=== PATIENT | male | born 1995 | race Caucasian/White ===

== ENCOUNTER 2017-06-30 23:48 | Emergency (ER) | payer SELFPAY ==
[~2017-06-30] VITALS: Ht 180.3 cm; Wt 63.5 kg
[~2017-06-30 23:48] MED LIST: AMOCLA250S PO; AMOCLA500 PO; ARIP10 PO; BENZ100A PO; CEFP250; CEPH500 PO; CODACE30 PO; CODACEE120 PO; DIPH12.5EL; DIPH25; DIPH25 PO; ERYT.5TO LEFTEYE; FAMO20 PO; FLUO20 PO; HYDACE5 PO; IBUP200 PO; METPHE18ER; METPHE18ER PO; METPHE27ER; METPHE27ER PO; Naprosyn500 MG PO; Norco 5-325 Ta1 EACH PO; ONDA8 PO; ONDA8ODT MM; PANT40 PO; POLY17UD; PRED10 PO; PRED20 PO; Pepcid20 MG PO; Pepcid40 MG PO; Percocet 5-3251 EACH PO; Prednisone20 MG PO; Prilosec Otc20 MG PO; RXHYDGUAS PO; RXPRED10 PO; SUCR1 PO; SULF10OPO OP; SULTRIDS PO; Ultram50 MG PO; Vibramycin100 MG PO; Zofran Odt4 MG SL; Zofran8 MG PO; [UNRECOGNIZED DRUG - OTHER]
[2017-07-01] MEDS ORDERED: METPHE18ER PO (00:11)
[2017-07-01] MEDS ORDERED: ARIP10 PO (00:11)
[2017-07-01 00:50] LABS: Chloride (POC) 103 mmol/L (98-108); Glucose (ISTAT POC) 87 mg/dL (70-99); Hemoglobin (POC) 14.6 g/dL (13.5-17.5); Potassium (POC) 3.9 mmol/L (3.5-5.5); Sodium (POC) 142 mmol/L (135-148); Total CO2 (POC) 31 mmol/L (21-32)
[2017-07-01 00:55] LABS: Influenza A Negative (NEGATIVE); Influenza B Negative (NEGATIVE)
[2017-07-01] MEDS ORDERED: Zofran Odt4 MG SL (01:43)
[2017-07-01] MEDS ORDERED: BENZ100A PO (01:43)
[2017-07-01] MEDS ORDERED: Mucinex600 MG PO (01:43)
[2018-04-05] MEDS ORDERED: PRED20 PO (13:08)
== END 2017-07-01 02:00 | disposition home or self-care (01) ==
LOC: ER 23:48
PROVIDERS: Physician Assistant
DX: B34.9 Viral infection, unspecified (principal); Z79.899 Other long term (current) drug therapy; F32.9 Major depressive disorder, single episode, unspecified; F17.200 Nicotine dependence, unspecified, uncomplicated
CPT/HCPCS: 36415; 71046; 80047; 85014; 87081; 87430; 87804; 96361; 96374; 99283; J1100; J1885; J7030

== ENCOUNTER 2017-12-22 16:40 | Emergency (ER) | payer OTHER ==
[~2017-12-22] VITALS: Ht 180.3 cm; Wt 63.5 kg
[~2017-12-22 16:40] MED LIST changes: +Mucinex600 MG PO
[2017-12-22] MEDS ORDERED: Cleocin HCl300 MG PO (17:20)
== END 2017-12-22 17:50 | disposition home or self-care (01) ==
LOC: ER 16:40
DX: K04.7 Periapical abscess without sinus (principal); Z88.0 Allergy status to penicillin; Z79.899 Other long term (current) drug therapy; F32.9 Major depressive disorder, single episode, unspecified; F17.200 Nicotine dependence, unspecified, uncomplicated
CPT/HCPCS: 64400; 99282-25

== ENCOUNTER 2019-01-28 12:30 | Emergency (ER) | payer OTHER ==
[~2019-01-28] VITALS: Ht 180.3 cm; Wt 61.2 kg
[~2019-01-28 12:30] MED LIST changes: +Cleocin HCl300 MG PO
[2019-01-28 14:09] LABS: Source, Urine Clean Catch
[2019-01-28 14:12] LABS: Bilirubin, Urine Neg (Neg); Blood, Urine Neg (Neg); Glucose Qualitative, Urine Neg (Neg); Ketones, Urine Neg (Neg); Leukocyte Esterase, Urine Neg (Neg); Nitrite, Urine Neg (Neg); Protein, Urine 1+ (Neg); Urobilinogen, Urine NORM (Normal)
[2019-01-28 14:25] LABS: Appearance, Urine Clear (Clear); Color, Urine Pale Yellow (P-Yellow)
== END 2019-01-28 14:56 | disposition home or self-care (01) ==
LOC: ER 12:30
PROVIDERS: Emergency Medicine
DX: N50.82 Scrotal pain (principal); F32.9 Major depressive disorder, single episode, unspecified; F98.8 Other specified behavioral and emotional disorders with onset usually occurring in childhood and adolescence; F17.210 Nicotine dependence, cigarettes, uncomplicated; Z88.0 Allergy status to penicillin
CPT/HCPCS: 36415; 76857; 76870; 96374; 99284-25; J3010

== ENCOUNTER 2019-09-05 11:05 | Day surgery (SDC) | payer OTHER ==
[~2019-09-05] VITALS: Ht 180.3 cm; Wt 63.2 kg
[~2019-09-05 11:05] MED LIST changes: +ABILIFY MYCITE5 M2 PO; +BUPR150ER PO; +OMEP20ER PO; +TRAZ50
== END 2019-09-05 14:10 | disposition home or self-care (01) ==
LOC: ORSCSDS 11:05
PROVIDERS: Student in an Organized Health Care Education/Training Program
PROC: 0DJD8ZZ Inspection of Lower Intestinal Tract, Via Natural or Artificial Opening Endoscopic (ICD-10-PCS; principal; 2019-09-05 13:30)
DX: K62.5 Hemorrhage of anus and rectum (principal); K64.8 Other hemorrhoids; F31.9 Bipolar disorder, unspecified; J45.909 Unspecified asthma, uncomplicated; F17.210 Nicotine dependence, cigarettes, uncomplicated; Z79.899 Other long term (current) drug therapy
CPT/HCPCS: J2704; J7120

== ENCOUNTER 2019-10-09 22:28 | Emergency (ER) | payer OTHER ==
[~2019-10-09] VITALS: Ht 180.3 cm; Wt 68.0 kg
[2019-10-09] MEDS ORDERED: Norco 5-325 Ta1 EACH PO (23:33)
== END 2019-10-09 23:52 | disposition home or self-care (01) ==
LOC: ER 22:28
DX: S62.336A Displaced fracture of neck of fifth metacarpal bone, right hand, initial encounter for closed fracture (principal); F10.129 Alcohol abuse with intoxication, unspecified; F32.9 Major depressive disorder, single episode, unspecified; F17.210 Nicotine dependence, cigarettes, uncomplicated; F98.8 Other specified behavioral and emotional disorders with onset usually occurring in childhood and adolescence; Z87.81 Personal history of (healed) traumatic fracture; Z88.0 Allergy status to penicillin; Z88.8 Allergy status to other drugs, medicaments and biological substances; W19.XXXA Unspecified fall, initial encounter
CPT/HCPCS: 25635; 73130; 99283-25

== ENCOUNTER 2019-12-25 21:18 | Emergency (ER) | payer OTHER ==
[~2019-12-25] VITALS: Ht 180.3 cm; Wt 65.8 kg
== END 2019-12-26 00:01 | disposition home or self-care (01) ==
LOC: ER 21:18
DX: S63.616A Unspecified sprain of right little finger, initial encounter (principal); Z88.0 Allergy status to penicillin; Z88.8 Allergy status to other drugs, medicaments and biological substances; F17.200 Nicotine dependence, unspecified, uncomplicated; Y04.0XXA Assault by unarmed brawl or fight, initial encounter
CPT/HCPCS: 29130; 73130; 99283-25

== ENCOUNTER 2020-04-14 22:11 | Emergency (ER) | payer OTHER ==
[~2020-04-14] VITALS: Ht 180.3 cm; Wt 65.8 kg
[~2020-04-14 22:11] MED LIST changes: +DEXT30SU PO; +IBUP600 PO
[2020-04-14] MEDS ORDERED: BENZ100A PO (23:45)
[2020-04-14] MEDS ORDERED: ALBU90OI INH (23:45)
[2020-04-14] MEDS ORDERED: Benadryl25 MG PO (23:45)
== END 2020-04-15 00:05 | disposition home or self-care (01) ==
LOC: ER 22:11
DX: J40 Bronchitis, not specified as acute or chronic (principal); F90.9 Attention-deficit hyperactivity disorder, unspecified type; F32.9 Major depressive disorder, single episode, unspecified; F17.200 Nicotine dependence, unspecified, uncomplicated; Z88.0 Allergy status to penicillin; Z79.899 Other long term (current) drug therapy
CPT/HCPCS: 99283; Q0163

== ENCOUNTER 2020-05-09 18:49 | Emergency (ER) | payer OTHER ==
[~2020-05-09] VITALS: Ht 180.3 cm; Wt 65.8 kg
[~2020-05-09 18:49] MED LIST changes: +ALBU90OI INH; +Benadryl25 MG PO
== END 2020-05-09 21:54 | disposition home or self-care (01) ==
LOC: ER 18:49
DX: S02.2XXA Fracture of nasal bones, initial encounter for closed fracture (principal); S02.5XXA Fracture of tooth (traumatic), initial encounter for closed fracture; H53.8 Other visual disturbances; F32.9 Major depressive disorder, single episode, unspecified; F90.9 Attention-deficit hyperactivity disorder, unspecified type; F17.200 Nicotine dependence, unspecified, uncomplicated; Z88.0 Allergy status to penicillin; W01.198A Fall on same level from slipping, tripping and stumbling with subsequent striking against other object, initial encounter
CPT/HCPCS: 70450; 72125; 99283-25

== ENCOUNTER 2020-05-19 20:18 | Emergency (ER) | payer OTHER ==
[~2020-05-19] VITALS: Ht 180.3 cm; Wt 65.8 kg
== END 2020-05-19 21:24 | disposition home or self-care (01) ==
LOC: ER 20:18
DX: S22.31XA Fracture of one rib, right side, initial encounter for closed fracture (principal); S02.5XXA Fracture of tooth (traumatic), initial encounter for closed fracture; F32.9 Major depressive disorder, single episode, unspecified; F90.9 Attention-deficit hyperactivity disorder, unspecified type; F10.129 Alcohol abuse with intoxication, unspecified; F17.200 Nicotine dependence, unspecified, uncomplicated; Z88.0 Allergy status to penicillin; W01.10XA Fall on same level from slipping, tripping and stumbling with subsequent striking against unspecified object, initial encounter; Y93.02 Activity, running
CPT/HCPCS: 96372; 99282-25; J1885

== ENCOUNTER 2020-07-03 21:14 | Emergency (ER) | payer OTHER ==
[~2020-07-03] VITALS: Ht 177.8 cm; Wt 65.8 kg
== END 2020-07-03 23:58 | disposition home or self-care (01) ==
LOC: ER 21:14
DX: F32.9 Major depressive disorder, single episode, unspecified (principal); R07.89 Other chest pain; F17.210 Nicotine dependence, cigarettes, uncomplicated; Z88.0 Allergy status to penicillin; Y04.2XXA Assault by strike against or bumped into by another person, initial encounter; Y92.002 Bathroom of unspecified non-institutional (private) residence as the place of occurrence of the external cause
CPT/HCPCS: 71046; 99285-25

== ENCOUNTER 2020-07-24 21:40 | Emergency (ER) | payer OTHER ==
[~2020-07-24] VITALS: Ht 180.3 cm; Wt 65.8 kg
[2020-07-24 22:57] LABS: BASOPHILS ABSOLUTE AUTO 0.05 K/mm3 (0.00-0.23); BASOPHILS PERCENT AUTO 1 % (0-2); EOSINOPHILS PERCENT AUTO 4 % (0-6); Hematocrit 51.7 % (37.0-53.0); Hemoglobin 17.7 g/dL (13.5-17.5); IMMATURE GRAN ABSOLUTE AUTO 0.01 K/mm3 (0.00-0.10); IMMATURE GRAN PERCENT AUTO 0 % (0-1); LYMPHOCYTES ABSOLUTE AUTO 2.67 K/mm3 (0.84-5.20); LYMPHOCYTES PERCENT AUTO 48 % (21-46); MONOCYTES PERCENT AUTO 9 % (4-13); Mean Corpuscular HGB 31.3 pg (26.0-34.0); Mean Corpuscular HGB Conc 34.2 g/dL (31.5-36.5); Mean Corpuscular Volume 92 fL (80-100); Mean Platelet Volume 9.6 fL (9.1-12.4); NEUTROPHILS ABSOLUTE AUTO 2.18 K/mm3 (1.96-9.15); NEUTROPHILS PERCENT AUTO 39 % (41-73); Platelet Count 348 K/mm3 (150-400); RDW Coefficient Variation 11.7 % (11.7-14.2); RDW Standard Deviation 39.1 fL (35.1-46.3); Red Blood Cell Count 5.65 M/mm3 (4.30-5.90); White Blood Cell Count 5.61 K/mm3 (4.00-11.30)
[2020-07-24 23:13] LABS: Alanine Aminotransfer (ALT/SGP 19 U/L (12-78); Albumin, Blood 4.4 g/dL (3.4-5.0); Alk Phos 99 U/L (50-136); Anion Gap 5 mmol/L (6-16); Aspartate Aminotrans (AST/SGOT 14 U/L (12-37); Bilirubin, Total 0.3 mg/dL (0.1-1.0); Blood Urea Nitrogen 8 mg/dL (8-24); CO2, Blood 31 mmol/L (21-32); Calcium, Blood 9.2 mg/dL (8.5-10.1); Chloride, Blood 108 mmol/L (98-108); Ethanol (Alcohol), Blood, Med 260 mg/dL; Globulin, Blood 4.3 g/dL (2.2-4.0); Glomerular Filtration Rate >60 (60-); Glucose, Blood 91 mg/dL (70-99); Potassium, Blood 3.6 mmol/L (3.5-5.5); Salicylate <1.7 mg/dL (2.8-20.0); Sodium, Blood 144 mmol/L (136-145); Total Protein, Blood 8.7 g/dL (6.4-8.2)
[2020-07-24 23:15] LABS: Acetaminophen, Random <2.0 ug/mL (10.0-30.0)
[2020-07-24 23:33] LABS: U Amphetamine Screen Not Detected; U Barbituate Screen Not Detected; U Benzodiazapine Screen Not Detected; U Buprenorphine Screen Not Detected; U Cannabinoids Screen Not Detected; U Cocaine Screen Not Detected; U Methadone Screen Not Detected; U Methamphetamine Screen Not Detected; U Opiates Screen Not Detected; U Oxycodone Screen Not Detected; U Phencyclidine Screen Not Detected; U Propoxyphene Screen Not Detected
== END 2020-07-25 00:37 | disposition home or self-care (01) ==
LOC: ER 21:40
PROVIDERS: Student in an Organized Health Care Education/Training Program
DX: F10.129 Alcohol abuse with intoxication, unspecified (principal); F32.9 Major depressive disorder, single episode, unspecified; F17.210 Nicotine dependence, cigarettes, uncomplicated; Z88.0 Allergy status to penicillin
CPT/HCPCS: 36415; 80053; 85025; 99284; G0480

== ENCOUNTER 2023-07-19 01:12 | Observation (INO) | payer OTHER ==
[~2023-07-19] VITALS: Ht 180.3 cm; Wt 68.0 kg
[2023-07-19 02:53] LABS: BASOPHILS ABSOLUTE AUTO 0.06 K/mm3 (0.00-0.23); BASOPHILS PERCENT AUTO 1 % (0-2); EOSINOPHILS ABSOLUTE AUTO 0.28 K/mm3 (0.00-0.68); EOSINOPHILS PERCENT AUTO 4 % (0-6); Hematocrit 45.8 % (37.0-53.0); Hemoglobin 15.9 g/dL (13.5-17.5); IMMATURE GRAN ABSOLUTE AUTO 0.01 K/mm3 (0.00-0.10); IMMATURE GRAN PERCENT AUTO 0 % (0-1); LYMPHOCYTES ABSOLUTE AUTO 2.87 K/mm3 (0.84-5.20); LYMPHOCYTES PERCENT AUTO 42 % (21-46); MONOCYTES ABSOLUTE AUTO 0.57 K/mm3 (0.16-1.47); MONOCYTES PERCENT AUTO 8 % (4-13); Mean Corpuscular HGB 32.7 pg (26.0-34.0); Mean Corpuscular HGB Conc 34.7 g/dL (31.5-36.5); Mean Corpuscular Volume 94 fL (80-100); Mean Platelet Volume 9.1 fL (9.1-12.4); NEUTROPHILS ABSOLUTE AUTO 2.98 K/mm3 (1.96-9.15); NEUTROPHILS PERCENT AUTO 44 % (41-73); Platelet Count 307 K/mm3 (150-400); RDW Coefficient Variation 12.9 % (11.7-14.2); RDW Standard Deviation 44.4 fL (35.1-46.3); Red Blood Cell Count 4.86 M/mm3 (4.30-5.90); White Blood Cell Count 6.77 K/mm3 (4.00-11.30)
[2023-07-19 03:07] LABS: Albumin, Blood 4.4 g/dL (3.4-5.0); Bilirubin, Total 0.4 mg/dL (0.1-1.0); Calcium, Blood 9.1 mg/dL (8.5-10.1); Creatinine, Blood 0.8 mg/dL (0.60-1.20); Globulin, Blood 4.2 g/dL (2.2-4.0); Potassium, Blood 4.2 mmol/L (3.5-5.5); Total Protein, Blood 8.6 g/dL (6.4-8.2)
[2023-07-19 03:11] LABS: Source, Urine Clean Catch
[2023-07-19 03:25] LABS: Bilirubin, Urine Neg (Neg); Blood, Urine Neg (Neg); Glucose Qualitative, Urine Neg (Neg); Ketones, Urine Neg (Neg); Leukocyte Esterase, Urine Neg (Neg); Nitrite, Urine Neg (Neg); Protein, Urine Neg (Neg); Specific Gravity, Urine 1.015 (1.003-1.022); Urobilinogen, Urine NORM (Normal)
[2023-07-19 03:36] LABS: U Amphetamine Screen Not Detected; U Barbituate Screen Not Detected; U Benzodiazapine Screen Not Detected; U Buprenorphine Screen Not Detected; U Cannabinoids Screen Not Detected; U Cocaine Screen Not Detected; U Methadone Screen Not Detected; U Methamphetamine Screen Not Detected; U Opiates Screen Not Detected; U Oxycodone Screen Not Detected; U Phencyclidine Screen Not Detected
[2023-07-19 03:37] LABS: Appearance, Urine Clear (Clear); Color, Urine Yellow (P-Yellow)
[2023-07-19 10:30] VITALS: BP 119/86
== END 2023-07-20 10:51 | disposition home or self-care (01) ==
LOC: ER 01:12 → EOR 01:13
PROVIDERS: ADMIT Emergency Medicine
DX: F10.129 Alcohol abuse with intoxication, unspecified (principal); Y90.6 Blood alcohol level of 120-199 mg/100 ml; F32.A Depression, unspecified; F17.210 Nicotine dependence, cigarettes, uncomplicated
CPT/HCPCS: 80053; 81003; 85025; 99285; G0378

== ENCOUNTER 2024-03-25 21:29 | Emergency (ER) | payer OTHER ==
[~2024-03-25] VITALS: Ht 177.8 cm; Wt 68.0 kg
[~2024-03-25 21:29] MED LIST changes: +ASPERFLEX1 EACH TOP
[2024-03-25 21:34] VITALS: BP 143/91
[2024-03-25] MEDS ORDERED: Ketorolac Tromethamine 15mg Vial IM ONE (22:20)
[2024-03-25] MEDS ORDERED: Voltaren100 GM TOP (22:32)
== END 2024-03-25 22:38 | disposition home or self-care (01) ==
LOC: ER 21:29
DX: S16.1XXA Strain of muscle, fascia and tendon at neck level, initial encounter (principal); W01.10XA Fall on same level from slipping, tripping and stumbling with subsequent striking against unspecified object, initial encounter; F17.210 Nicotine dependence, cigarettes, uncomplicated
CPT/HCPCS: 72040; 96372; 99283-25; J1885

== ENCOUNTER 2024-07-12 22:46 | Emergency (ER) | payer OTHER ==
[~2024-07-12] VITALS: Ht 180.3 cm; Wt 61.2 kg
[~2024-07-12 22:46] MED LIST changes: +Voltaren100 GM TOP
[2024-07-12] MEDS ORDERED: IBUP200 (22:58)
[2024-07-13] MEDS ORDERED: Ciprofloxacin 500 MG Tab PO ONE (03:30)
[2024-07-13] MEDS ORDERED: Diphth,Pertuss(Acell),Tet Vac 0.5 ML VIAL IM ONE (03:30)
[2024-07-13] MEDS ORDERED: Cephalexin Monohydrate 500 MG Cap PO ONE (03:30)
[2024-07-13] MEDS ORDERED: CIPR500 PO (03:35)
[2024-07-13 03:41] VITALS: BP 133/72
== END 2024-07-13 03:50 | disposition home or self-care (01) ==
LOC: ER 22:46
DX: L73.9 Follicular disorder, unspecified (principal); B96.5 Pseudomonas (aeruginosa) (mallei) (pseudomallei) as the cause of diseases classified elsewhere; L03.116 Cellulitis of left lower limb; Z23 Encounter for immunization; F17.210 Nicotine dependence, cigarettes, uncomplicated; Z88.0 Allergy status to penicillin
CPT/HCPCS: 90715; 99282; A9270